=== PATIENT | female | born 1975 | race Caucasian/White ===

== ENCOUNTER 2016-12-16 16:22 | Emergency (ER) | payer MEDICAID, OTHER ==
[~2016-12-16] VITALS: Ht 167.6 cm; Wt 85.0 kg
[2016-12-16 16:44] VITALS: Ht 167.6 cm; Wt 85.0 kg
[2016-12-16] MEDS ORDERED: LABETALOL HCL 20MG INJ IV ONE (20:30)
[2016-12-16] MEDS ORDERED: ACET325T33 PO (20:44)
[2016-12-16 20:48] LABS: ADD SCAN DIFF NO
[2016-12-16 20:51] LABS: BASOPHILS % 0.4 % (0.0-2.0); EOSINOPHILS # 0.3 10^3/ul (0.0-0.5); EOSINOPHILS % 2.8 % (0.0-7.0); HEMATOCRIT 39.9 % (37.0-47.0); HEMOGLOBIN 13.7 g/dl (12.0-16.0); LYMPHOCYTES # 3.2 10^3/ul (0.8-2.9); LYMPHOCYTES % 30.5 % (15.0-51.0); MEAN CORPUSCULAR HEMOGLOBIN 29.8 pg (29.0-33.0); MEAN CORPUSCULAR HGB CONC 34.3 g/dl (32.0-37.0); MEAN CORPUSCULAR VOLUME 86.9 fl (82.0-101.0); MONOCYTES % 9.4 % (0.0-11.0); NEUTROPHILS % 56.7 % (39.0-77.0); PLATELET COUNT 347 10^3/UL (140-415); RED BLOOD COUNT 4.59 10^6/ul (4.20-5.40); RED CELL DISTRIBUTION WIDTH 13.5 % (11.5-14.5); WHITE BLOOD COUNT 10.5 10^3/ul (4.8-10.8)
--- NOTE | 2016-12-16 20:59 | RADRPT ---
PROCEDURE: Chest x-ray CLINICAL INDICATION: Chest pain TECHNIQUE: Chest single view COMPARISON: None FINDINGS: The heart is normal in size. The pulmonary vessels are normal in caliber. The lungs are clear. Th e costophrenic angles are sharp. The visualized bony thorax is unremarkable. IMPRESSION: No acute cardiopulmonary disease. RPTAT: HH .Gabino May MD, Date Time Electronically viewed and signed by .Gabino May MD, MD on 12/16/2016 20:59 .W/
[2016-12-16 21:02] LABS: ALBUMIN 4.5 g/dl (3.3-4.9); CHLORIDE 101 mmol/L (97-110)
[2016-12-16 21:03] LABS: POTASSIUM 3.4 mmol/L (3.5-5.1); SODIUM 139 mmol/L (135-144)
[2016-12-16 21:05] LABS: ALANINE AMINOTRANSFERASE 34 IU/L (13-69); ALBUMIN/GLOBULIN RATIO 1.12; ALKALINE PHOSPHATASE 110 IU/L (42-121); ANION GAP 16 (8-16); ASPARTATE AMINO TRANSFERASE 33 IU/L (15-46); BILIRUBIN,INDIRECT 0.3 mg/dl (0-1.1); BILIRUBIN,TOTAL 0.3 mg/dl (0.2-1.3); BLOOD UREA NITROGEN 11 mg/dl (7-20); CARBON DIOXIDE 25 mmol/L (21-31); CREATININE 0.62 mg/dl (0.44-1.00); GLUCOSE 101 mg/dl (70-220); TOTAL PROTEIN 8.5 g/dl (6.1-8.1)
[2016-12-16 21:06] LABS: CALCIUM 9.3 mg/dl (8.4-10.2); CREATINE KINASE 91 IU/L (23-200)
[2016-12-16 21:13] LABS: INR 0.96; PROTIME 12.8 Sec (12.2-14.2)
[2016-12-16 21:14] LABS: CK-MB 1.29 ng/ml (0.0-2.4); PARTIAL THROMBOPLASTIN TIME 28.2 Sec (25.0-35.0)
[2016-12-16 21:15] LABS: B-TYPE NATRIURETIC PEPTIDE 113 PG/ML (0-125)
[2016-12-16 21:21] LABS: TROPONIN-I < 0.012 ng/ml (0.00-0.12)
--- NOTE | 2016-12-16 21:38 | RADRPT ---
PROCEDURE: CT brain without contrast CLINICAL INDICATION: Headaches. Elevated blood pressure TECHNIQUE: A CT of the brain was performed utilizing axial sections from the skull base through th e vertex without contrast. Sagittal and coronal images were also reformatted. The exam CTDIvol = 44. 19 mGy and DLP = 630.20 mGy-cm. COMPARISON: None available FINDINGS: No acute intracranial hemorrhage is identified. There is no mass effect or midline shift. No extra -axial fluid collection is seen. The ventricles and sulci are within normal limits for size and con figuration. The density of the brain is within normal limits. Pierre-white differentiation is preser ravinder. The osseous structures are unremarkable. The mastoid air cells and visualized paranasal sinuses are clear. RPTAT:HJJR IMPRESSION: Unremarkable noncontrast CT of the brain. Physician Luke Date Time Electronically viewed and signed by Physician Luke on 12/16/2016 21:37 /
[2016-12-16] MEDS ORDERED: DICLOFENAC SODIUM 37.5 MG/ML VIAL IV STA (22:18)
[2016-12-16 22:23] VITALS: BP 162/92; PULSE 69; RESP 17
--- NOTE | 2016-12-16 22:26 | ERD ---
ER Documentation Chief Complaint Date/Time DATE: 12/16/16 TIME: 22:21 Chief Complaint BLOOD PRESSURE HIGH TODAY & HEADACHE HPI This is a 41-year-old female with a known history of hypertension who ran out of her antihypertensive medication 6 months prior to arrival. She indicates that over the past several days she has had a bandlike headache but states this is not the worst headache of her life. He does not have a primary care physician therefore was unable to have a blood pressure medication filled. She has no chest pain or pressure that radiates to the neck arm back or jaw. She has no shortness of breath at rest or exertion. She is no swelling of upper or lower extremities. She denies any weakness of upper or lower extremities. She denies any syncope or near syncope episode and no changes in vision ROS All systems reviewed and are negative except as per history of present illness. Medications Home Meds Reported Medications Acetaminophen* (Tylenol*) 325 Mg Tablet, 650 MG PO Q6H Y for PAIN AND OR ELEVATED TEMP, TAB 12/16/16 Allergies Allergies: Coded Allergies: No Known Allergy (Unverified , 12/16/16) PMhx/Soc History of Surgery: Yes (appy, c/s x2) Anesthesia Reaction: No Hx Cardiac Disorders: Yes (htn- off meds x 6 mo) Hx Alcohol Use: No Hx Substance Use: No Hx Tobacco Use: No Smoking Status: Unknown if ever smoked Physical Exam Vitals Vital Signs Date Time Temp Pulse Resp B/P Pulse Ox O2 Delivery O2 Flow Rate FiO2 12/16/16 21:24 70 17 170/111 99 Room Air 12/16/16 20:44 73 17 213/125 100 Room Air 12/16/16 20:19 80 18 229/133 99 Room Air 12/16/16 16:44 97.5 86 18 116/59 99 Physical Exam Constitutional:Well-developed. Well-nourished. HEENT:Normocephalic. Atraumatic.Pupils were equal round reactive to light. Moist mucous membranes.No tonsillar exudates. Fundoscopy exam showed sharp optic disc bilaterally venous pulsations are present Neck: No nuchal rigidity. No lymphadenopathy. No posterior cervical spine tenderness or step-offs. Respiratory: Not using accessory muscles of respiration.Lungs were clear to auscultation bilaterally. No rhonchi. No rales. No wheezing. Cardiovascular: Regular rate regular rhythm.No murmurs. No rubs were appreciated.S1, S2 normal. Distal pulses are palpable 2+ bilaterally. GI: Abdomen was soft. Nontender. Non Distended. No pulsatile abdominal masses or bruits. No rebound. No guarding. Bowel sounds were present and normal. Muscle skeletal: Full range of motion of both the upper and lower extremities bilaterally.Normal muscle tone.No assymetrical calf tenderness or swelling. Skin: No petechia, no purpura. No lesions on the palms or the soles of the feet. No maculopapular rash. NEURO: Patient was alert, awake, orientated x3.No facial droop. Gait observed and normal with no ataxia.Speech had regular rate and rhythm. No focal neurological deficits. Result Diagram: 12/16/16202912/16/162029 Results 24 hrs Laboratory Tests Test 12/16/16 20:30 White Blood Count 10.510^3/ul Red Blood Count 4.5910^6/ul Hemoglobin 13.7g/dl Hematocrit 39.9% Mean Corpuscular Volume 86.9fl Mean Corpuscular Hemoglobin 29.8pg Mean Corpuscular Hemoglobin Concent 34.3g/dl Red Cell Distribution Width 13.5% Platelet Count 67159^3/UL Mean Platelet Volume 10.0fl Neutrophils % 56.7% Lymphocytes % 30.5% Monocytes % 9.4% Eosinophils % 2.8% Basophils % 0.4% Nucleated Red Blood Cells % 0.0/100WBC Neutrophils # 6.010^3/ul Lymphocytes # 3.210^3/ul Monocytes # 1.010^3/ul Eosinophils # 0.310^3/ul Basophils # 0.010^3/ul Nucleated Red Blood Cells # 0.010^3/ul Prothrombin Time 12.8Sec Prothrombin Time Ratio 1.0 INR International Normalized Ratio 0.96 Activated Partial Thromboplast Time 28.2Sec Sodium Level 139mmol/L Potassium Level 3.4mmol/L Chloride Level 101mmol/L Carbon Dioxide Level 25mmol/L Anion Gap 16 Blood Urea Nitrogen 11mg/dl Creatinine 0.62mg/dl Glucose Level 101mg/dl Calcium Level 9.3mg/dl Total Bilirubin 0.3mg/dl Direct Bilirubin 0.00mg/dl Indirect Bilirubin 0.3mg/dl Aspartate Amino Transf (AST/SGOT) 33IU/L Alanine Aminotransferase (ALT/SGPT) 34IU/L Alkaline Phosphatase 110IU/L Creatine Kinase 91IU/L Creatine Kinase Index 1.4 Creatinine Kinase MB (Mass) 1.29ng/ml Troponin I < 0.012ng/ml B-Type Natriuretic Peptide 113PG/ML Total Protein 8.5g/dl Albumin 4.5g/dl Globulin 4.00g/dl Albumin/Globulin Ratio 1.12 Current Medications Medications (Trade) Dose Ordered Sig/Joy Route PRN Reason Start Time Stop Time Status Last Admin Dose Admin Labetalol HCl (Labetalol) 20 mg ONCE ONCE IV 12/16/16 20:30 12/16/16 20:31 DC 12/16/16 20:50 Clonidine (Catapres) 0.1 mg ONCE ONCE PO 12/16/16 22:30 12/16/16 22:31 UNV Diclofenac Sodium (Dyloject) 37.5 mg ONCE STAT IV 12/16/16 22:18 12/16/16 22:19 UNV Procedures/MDM This patient presented to the emergency department with severely elevated blood pressure. My differential diagnosis included but was not limited to conditions that could end-organ damage such as acute coronary syndrome, acute pulmonary edema, aortic dissection, subarachnoid hemorrhage, intracerebral hemorrhage, cerebral infarction, withdrawal syndromes from beta blockers, or states of catecholamine excess such as pheochromocytoma or drug intoxication. Ancillary lab work was obtained. There was no elevation in the BUN and creatinine to suggest acute renal failure. Electrolytes were normal. Cardiac enzyme was normal and the 12 lead EKG showed no acute ischemic changes or left ventricular hypertrophy. 12 Lead EKG tracing ordered and reviewed by myself showed: Normal sinus rhythm of 70 bpm and no arrhythmia. TX interval normal. QRS duration normal. No ST segment elevation No ST segment depression. No changes consistent with acute ischemia. CT scan of the cerebral hemorrhage mass-effect or midline shift I did feel her headache was exacerbated by her hypertension Given that the patient had an absence of cerebral, ocular, cardiac or renal damage the hypertensive urgency was treated with IV labetalol followed by oral agents, being clonidine in the emergency room with improvement of the patient's blood pressure. The patient likely appeared to be complaint with primary care physician and will follow up with their PCP in the next 24-48 hours but given that she states she is currently waiting to get a PCP I did not provide a prescription of hydrochlorothiazide and they were instructed to return to the emergency department at anytime if there is any worsening of their condition such as development of chest pain or a headache. They were instructed to resume previous medication regimen or initiate a suitable medication regimen under care of the PCP to enable proper monitoring for drug reactions. The patient was also informed on the adverse side effects and adverse drug interactions of the medications prescribed to them by myself. The patient gave informed consent to the prescription of the new medication. Departure Diagnosis: Primary Impression: Hypertensive urgency Additional Impression: Tension headache Condition: DIAMOND Wan Dec 16, 2016 22:26
[2016-12-16] MEDS ORDERED: HYD25 PO (22:27)
[2016-12-16] MEDS ORDERED: NAPR-260 PO (22:27)
== END 2016-12-16 22:48 | disposition home or self-care (01) ==
LOC: E/R 16:22
DX: I16.0 Hypertensive urgency (principal); I10 Essential (primary) hypertension; G44.209 Tension-type headache, unspecified, not intractable; R07.9 Chest pain, unspecified
CPT/HCPCS: 70450; 71010; 80053; 82550; 82553; 83880; 84484; 85025; 85610; 85730; 93005; Z7610; 96374